=== PATIENT | female | born 1980 | race Native Hawaiian/Other Pacific Islander ===

== ENCOUNTER 2016-10-25 08:17 | Emergency (ER) | payer OTHER ==
[~2016-10-25] VITALS: Ht 154.9 cm; Wt 54.0 kg
[2016-10-25 08:31] VITALS: TEMP 98.5
[2016-10-25 09:43] LABS: PLATELET COUNT 300 K/uL (152-353)
[2016-10-25 09:51] LABS: SODIUM 137 mmol/L (136-145)
[2016-10-25 10:45] VITALS: BP 117/82
== END 2016-10-25 10:55 | disposition home or self-care (01) ==
LOC: ED 08:17
PROVIDERS: Emergency Medicine
DX: R11.2 Nausea with vomiting, unspecified (principal)
CPT/HCPCS: 36415; 80053; 81000; 81025; 85027; 96361; 96374; 99284; J2405

== ENCOUNTER 2023-01-19 09:25 | Outpatient (CLI) | payer OTHER | END 2023-01-19 18:58 | disposition home or self-care (01) | LOC: MAMMO 09:25 | PROVIDERS: ATTEND Nurse Practitioner Family | DX: Z12.31 Encounter for screening mammogram for malignant neoplasm of breast (principal) ==

== ENCOUNTER 2023-02-05 10:23 | Outpatient (CLI) | payer OTHER | END 2023-02-05 19:06 | disposition home or self-care (01) | LOC: MAMMO 10:23 | PROVIDERS: ATTEND Nurse Practitioner Family | DX: R92.8 Other abnormal and inconclusive findings on diagnostic imaging of breast (principal) ==